=== PATIENT | female | born 1950 | race Hispanic/Latino ===

== ENCOUNTER → 2019-06-06 | Outpatient (CLI) | payer BC, MEDICARE ==
[~2019-06-06] MED LIST: GADODIAMIDE 10 MMOL/20 ML VIAL IV ONE
== END | disposition home or self-care (01) ==
LOC: RAH 08:52
PROVIDERS: ATTEND Family Medicine
DX: G31.9 Degenerative disease of nervous system, unspecified (principal); R90.82 White matter disease, unspecified
CPT/HCPCS: 70553; A9579

== ENCOUNTER → 2023-05-04 | Outpatient (CLI) | payer MEDICARE | END | disposition home or self-care (01) | LOC: RAH 09:14 | PROVIDERS: ATTEND Internal Medicine Gastroenterology | DX: R13.10 Dysphagia, unspecified (principal); K21.00 Gastro-esophageal reflux disease with esophagitis, without bleeding | CPT/HCPCS: 74240 ==

== ENCOUNTER → 2025-08-09 | Outpatient (CLI) | payer MEDICARE ==
[~2025-08-09] MED LIST changes: -GADODIAMIDE 10 MMOL/20 ML VIAL IV ONE; +IOHEXOL 350 MG/ML 100ML INFUS..BTL IV ONE
--- NOTE | 2025-08-09 21:11 | HMCIMG ---
EXAM: CT Abdomen and Pelvis with IV contrast (7-min Renal Delay) CLINICAL HISTORY: Abnormal weight loss TECHNIQUE: Axial computed tomography images of the abdomen and pelvis with intravenous contrast. CONTRAST: With intravenous contrast. COMPARISON: None provided. FINDINGS: LUNG BASES: [place]-dependent interstitial changes in bilateral posterobasal segments with minimal left-sided subpleural scarring. No pleural effusion. LIVER: Fatty liver. Minimal central intrahepatic biliary radicle dilatation. No focal lesion. GALLBLADDER AND BILE DUCTS: Gallbladder surgically absent. Common bile duct measures 1.5 cm. No choledocholithiasis. PANCREAS: Unremarkable. SPLEEN: Unremarkable. ADRENAL GLANDS: Unremarkable. KIDNEYS, URETERS, AND BLADDER: Dilated right extrarenal pelvis with AP diameter 1.6 cm; calyces not dilated. No definite ureteric calculus. Left kidney unremarkable. Urinary bladder unremarkable. STOMACH AND BOWEL: Sigmoid colon demonstrates circumferential mural thickening up to 0.9 cm with extensive diverticulosis and associated pericolic fat stranding and prominent mesenteric vasculature???features compatible with diverticulitis. No bowel obstruction. No CT evidence of appendicitis. APPENDIX: No evidence of acute appendicitis. PERITONEUM: No free fluid or free air. LYMPH NODES: No lymphadenopathy. REPRODUCTIVE: Unremarkable as visualized. VASCULATURE: No abdominal aortic aneurysm. Usual arterial calcific atherosclerosis. BONES: Grade I anterolisthesis of L4 over L5 with facet-joint degeneration and subluxation. No acute osseous abnormality. IMPRESSION * Sigmoid diverticulitis characterised by focal mural thickening, extensive diverticulosis, pericolic fat stranding, and prominent mesenteric vasculature; no perforation or obstruction. * Dilated right extrarenal pelvis (AP 1.6 cm) without calyceal dilatation or ureteric calculus, most consistent with non-obstructive extrarenal pelvis morphology. * Status post cholecystectomy with mild CBD dilatation (1.5 cm) and minimal central IHBR prominence; correlation with biochemical cholestasis recommended if clinically indicated. * Hepatic steatosis. * [place]-dependent interstitial changes and minimal left basal scarring. * Grade I anterolisthesis of L4 over L5 with associated facet degeneration. /[place]
== END | disposition home or self-care (01) ==
LOC: RAH 10:51
PROVIDERS: ATTEND Internal Medicine Gastroenterology
DX: K57.32 Diverticulitis of large intestine without perforation or abscess without bleeding (principal); K76.0 Fatty (change of) liver, not elsewhere classified; I70.0 Atherosclerosis of aorta; M43.5X6 Other recurrent vertebral dislocation, lumbar region; M43.16 Spondylolisthesis, lumbar region; R63.4 Abnormal weight loss; Z90.49 Acquired absence of other specified parts of digestive tract; Z98.890 Other specified postprocedural states
CPT/HCPCS: 74177; Q9967